=== PATIENT | male | born 1990 | race Two or more races ===

== ENCOUNTER 2019-01-15 07:20 | Outpatient (CLI) | payer OTHER | END 2019-01-15 07:44 | disposition home or self-care (01) | LOC: MRI 07:20 | DX: M79.604 Pain in right leg (principal) | CPT/HCPCS: 72146 ==

== ENCOUNTER → 2019-01-15 | Outpatient (CLI) | payer OTHER | END | disposition home or self-care (01) | LOC: NUCLEAR 08:32 | DX: M79.604 Pain in right leg (principal) | CPT/HCPCS: 78306; A9503 ==